=== PATIENT | male | born 2000 | race Caucasian/White ===

== ENCOUNTER 2020-03-31 11:21 | Outpatient (REF) | payer BC, SELFPAY ==
[2020-03-31 14:24] LABS: Hematocrit 42.2 % (42-52); Hemoglobin 13.9 g/dl (14.0-18.0); Mean Corpuscular HGB Conc 32.9 g/dl (31.0-36.0); Mean Corpuscular Volume 91.1 fL (80-98); Mean Platelet Volume 11.3 fL (9.4-12.4); Platelet Count 175 X10*3/uL (160-400); Red Blood Count 4.63 X10*6/uL (4.60-5.80)
[2020-03-31 14:30] LABS: WBC ABN SCTR FOR CBC 1
[2020-03-31 14:51] LABS: White Blood Count 21.8 X10*3/uL (4.8-10.8)
[2020-03-31 14:57] LABS: Anion Gap 12 (12-20); Blood Urea Nitrogen 8 mg/dL (9-16); Carbon Dioxide 30 mmol/L (22-29); Chloride 102 mmol/L (96-108); Estimated Glomerular Filt Rate > 60; Glucose Random 78 mg/dL (60-115); Potassium 4.9 mmol/l (3.3-5.1); Sodium 139 mmol/L (135-145)
[2020-03-31 15:02] LABS: Atypical Lymph Absolute Manual 9.8 x10*3/uL; Atypical Lymphs Percent Manual 45 % (0-6); Band Neutrophils Percent 11 % (3-5); Lymphocytes Absolute Manual 5.7 X10*3/uL (0.6-4.8); Lymphocytes Percent Manual 26 % (20-40); Monocytes Absolute Manual 0.9 X10*3/uL (0.0-1.2); Monocytes Percent Manual 4 % (2-11); Neutrophils Absolute Manual 5.5 X10*3/uL (2.2-7.9); Neutrophils Percent Manual 14 % (45-73); Platelet Estimate NORMAL (NORMAL); RBC Morphology NORMAL
[2020-03-31 15:03] LABS: Platelet Morphology Comment NORMAL
[2020-03-31 15:20] LABS: Monotest Positive (Negative)
[2020-04-01 08:51] LABS: Lyme Abs Screen <0.90 index
== END 2020-03-31 11:22 | disposition home or self-care (01) ==
LOC: HO.LAB 11:21
PROVIDERS: Visit Provider Nurse Practitioner Family
DX: J02.9 Acute pharyngitis, unspecified (principal); R52 Pain, unspecified; Z13.9 Encounter for screening, unspecified
CPT/HCPCS: 36415; 80048; 85007; 85027; 85060; 86308; 86618; 87071; 87147; 87880; U0003

== ENCOUNTER 2022-12-26 10:48 | Outpatient (AMB) | payer BC, SELFPAY ==
--- NOTE | 2022-12-26 10:52 | A.OFFPC_ITS ---
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 Patient states that he wants to get cleared and documents stating he no longer asthma. Patient states that if needed he would like a referral to a pulmanologist. Airplane Cover Maker Required: No Accompanied by: Self / Same As Patient Allergies azithromycin [AZITHROMYCIN] Allergy (Mild, Verified 12/26/22 11:57) RASH Medication List - Last Reconciled 12/26/22 by Roselia Felix CNP cetirizine (Zyrtec) 10 mg PO DAILY PRN montelukast 10 mg PO DAILY Tobacco use date assessed: 12/26/22 Dental Screening Dental Screen Date: 12/26/22 Did you have a dental visit in the last 12 months?: No Did you have a dental problem in the last 6 months where you did not have access to dental care?: No Was dental information given to patient?: Patient has dentist HPI HPI Comments History of Present Illness Details 22-year-old male presents to [facility]. He is a transfer from [facility]. He has not been seen in several years. His last blood work was in 2019. He reports h/o childhood asthma. Not on on prescription medications. No acute symptoms He denies cigarette smoking. He denies recreational drug use. He notes he is sexually active, in a monogamous relationship, and practices safe sex. He notes he is trying to get in the [place]. He requests PFT to rule out acute asthma symptoms. [facility] Medical History (Updated 12/26/22 @ 12:07 by Roselia Felix CNP) No pertinent past medical history Surgical History (Updated 12/26/22 @ 11:04 by Alley Alicia MA) No pertinent past surgical history Family History (Updated 12/26/22 @ 11:10 by Alley Alicia MA) Mother Thyroid disorder Father High blood pressure High cholesterol Diabetes Clotting disorder Paternal Grandmother High blood pressure High cholesterol Diabetes Cardiovascular disease Maternal Grandfather High blood pressure High cholesterol Paternal Grandfather Clotting disorder Social History Housing: House Patient Tobacco Use Status: Never used Tobacco e-Cigarette/Vaping Use: Never Used service: No Current occupational status: employed Current occupation: [employer] Associate Cognitive needs: No Hearing needs: No Vision needs: No Questionnaire PHQ-9 Over the last 2 weeks, how often have you been bothered by any of the following problems? 1. Little interest or pleasure in doing things: not at all 2. Feeling down, depressed, or hopeless: not at all 3. Trouble falling or staying asleep, or sleeping too much: not at all 4. Feeling tired or having little energy: not at all 5. Poor appetite or overeating: not at all 6. Feeling bad about yourself - or that you are a failure or have let yourself or your family down: not at all 7. Trouble concentrating on things, such as reading the newspaper or watching television: not at all 8. Moving or speaking so slowly that other people could have noticed. Or the opposite - being so fidgety or restless that you have been moving around a lot more than usual: not at all 9. Thoughts that you would be better off or of hurting yourself in some way: not at all Total score: 0 Depression Screening Interpretation: Negative Source: Developed by Drs. Yuriy Constantino, Dennise Vaughan, Demarcus Cummings and colleagues, with an educational lauro from [employer]. Thrive Questionnaire Date Thrive assessed: 12/26/22 I am a: Patient What is your living situation today?: I have a steady place to live Within the past 12 months, did the food you bought not last and you didn't have the money to get more?: Never true Within the past 12 months, did you worry whether your food would run out before you got money to buy more?: Never true Do you have trouble paying for medicines?: No Do you have trouble getting transportation to medical appointments?: No Do you have trouble paying your heating and electricity bill?: No Do you have trouble taking care of your child, family member or friend?: No Do you have trouble with day-to-day activities such as bathing, preparing meals, shopping, managing finances, etc.?: No Are you currently unemployed and looking for a job?: No Are you interested in more education?: No Please select the resources that you would like help with: None Currently or been in a relationship where the following occur: no concerns reported AUDIT C Alcohol Use Questionnaire (AUDIT-C) 1. How often do you have a drink containing alcohol?: 2-4 times a month 2. How many drinks containing alcohol do you have on a typical day when you are drinking?: 1 or 2 3. How often do you have six or more drinks on one occasion?: Never Total Score: 2 KWASI-7 AMB Questionnaire KWASI-7 Date KWASI - 7 assessed: 12/26/22 Feeling nervous, anxious, or on edge: 0 = Not at all Not being able to stop or control worryin = Not at all Worrying too much about different things: 0 = Not at all Trouble relaxin = Not at all Being so restless that it is hard to sit still: 0 = Not at all Becoming easily annoyed or irritable: 0 = Not at all Feeling afraid as if something awful might happen: 0 = Not at all Total KWASI-7 score (0-4 normal; 5-9 mild; 10-14 moderate; 15-21 severe): 0 Source: Developed by Drs. Yuriy Constantino, Dennise Vaughan, Demarcus Cummings and colleagues, with an educational lauro from [employer]. ACT Questionnaire In the past 4 weeks, how much of the time did your asthma keep you from getting as much done at work, school or at home?: None of the time During the past 4 weeks, how often have you had shortness of breath?: Not at all During the past 4 weeks, how often did your asthma symptoms wake you up at night or earlier than usual in the morning?: Not at all During the past 4 weeks, how often have you had to use your rescue inhaler or nebulizer medication?: Not at all How would you rate your asthma control during the past 4 weeks?: Completely controlled ACT Interpretation: Negative Score: 25 Review of Systems Const Details: Denies chills, Denies fatigue, Denies fever(s), Denies headache(s) and Denies weakness HEENT Denies change in vision, Denies dizziness, Denies headache(s), Denies hearing loss, Denies nasal congestion, Denies sinus pain, Denies sinus pressure and Denies sore throat Card Denies chest pain, Denies lightheadedness, Denies dyspnea and Denies other (palpitations) Resp Denies cough, Denies dyspnea and Denies wheezing GI Denies abdominal pain, Denies melena, Denies hematochezia, Denies change in bowel habits, Denies dyspepsia and Denies nausea Denies hematuria and Denies dysuria Musc Denies abnormal gait, Denies myalgias, Denies arthralgias, Denies numbness and Denies tingling Skin/Breast Denies rash, Denies unusual bruising and Denies wounds Neuro Denies abnormal gait, Denies dizziness, Denies headache(s), Denies memory loss, Denies numbness, Denies Sensory deficit (Neuro), Denies tingling and Denies weakness Psych Denies anxiety, Denies depression and Denies memory loss Endo Denies cold intolerance, Denies fatigue, Denies heat intolerance, Denies polydipsia and Denies polyuria Castro/Lymph Denies easy bleeding and Denies easy bruising Aller/Immun Denies wheezing Physical exam (Primary Care) Vital Signs: Last Vital Signs Temp 98.1 F 12/26/22 10:54 Pulse 83 12/26/22 10:54 Resp 12 12/26/22 10:54 BP 118/64 12/26/22 10:54 Pulse Ox 99 12/26/22 10:54 Oxygen Delivery Method Room Air 12/26/22 10:54 BMI result Body Mass Index 25.7 Tobacco/Smoking Status: Tobacco use Status Tobacco use date assessed 12/26/22 12/26/22 11:13 Patient Tobacco Use Status Never used Tobacco 12/26/22 11:13 e-Cigarette/Vaping Use Never Used 12/26/22 11:13 PHQ-9: PHQ-9 Score PHQ-9: Total score 0 12/26/22 11:13 Depression Screening Interpretation: Negative Thrive Assessment: Date of Thrive Assessment Date Thrive assessed 12/26/22 12/26/22 11:13 Currently or been in a relationship where the following occur: no concerns reported Const Other: General: no acute distress, well developed, alert and awake Nutritional Appearance: well nourished Orientation/consciousness: patient oriented x3 HENMT Head: Yes normocephalic and Yes atraumatic Ears: hearing grossly normal bilaterally and TM's normal bilaterally General nose exam: Normal external nose present and Normal nares present Mouth: Normal oral and palatal mucosa present and moist mucous membranes Teeth and gingiva: dentition normal Throat: Yes oropharynx normal Eyes Pupils: Equal, round and reactive pupils present and Pupil accommodation reflex normal EOM: EOMs intact bilaterally Neck Neck: Yes normal visual inspection, Yes no lymphadenopathy and Yes trachea midline Thyroid: Thyroid normal Carotids: no bruits Lymphatic: no lymphadenopathy noted Chest Chest palpation & inspection: normal inspection of the chest Resp Effort & Inspection: normal respiratory effort Auscultation: clear to auscultation bilaterally Cardio Rate: regular rate Rhythm: regular rhythm Heart sounds: S1 normal heart sound present, S2 normal heart sound present, no gallops, no murmurs and no rubs Bruits: no abdominal aortic bruits and no carotid bruits GI Palpation (GI): No Abdominal aortic bruit present, Soft to palpation, nontender, No hepatosplenomegaly present and No Rebound tenderness present Auscultation: normal bowel sounds General: Yes no CVA tenderness Back/Spine/Pelvis Back: no CVA tenderness Cervical Spine: cervical ROM normal and No Cervical spine tenderness Thoracic/Lumbar Spine: thoraco-lumbar ROM normal, No pain with thoraco-lumbar ROM, No thoracic spinal tenderness and No lumbar spinal tenderness Skin General: warm and dry. Normal skin color. Normal skin turgor Lesions: no lesions Rashes: no rashes Trauma: no lacerations or abrasions Wounds: no wounds Nails: normal Neuro General: patient oriented x3, gait normal and CN's II-XI intact bilaterally Cranial nerves: Yes Equal, round and reactive pupils present Cognition (Neuro): normal cognition Gait exam (Neuro): Normal gait present Motor exam (neuro): 5/5 motor strength present throughout Sensory Exam: No Sensory deficit (Neuro) Deep tendon reflexes (DTR's): Right patellar reflex intensity grade: 2+ and Left patellar reflex intensity grade: 2+ Extrem General: Yes normal to inspection, No edema and No calf tenderness Psych Appearance: grossly normal Affect: normal affect Attitude: cooperative Thought process: Normal thought process present Assessment and Plan Assessment & Plan (1) Normal physical examination, routine: Code(s): Z00.00 - Encounter for general adult medical examination without abnormal findings Plan: No significant physical restrictions or limitations noted Advised to get fasting blood work done and schedule a telehealth visit for labs review PFT ordered per patient request to rule out acute asthma Follow-up with concerns or symptoms Verbalized understanding and agreed with treatment plan. (2) Laboratory tests ordered as part of a complete physical exam (CPE): Code(s): Z00.00 - Encounter for general adult medical examination without abnormal findings Plan: Fasting labs ordered as part of a complete physical exam. Advised to fast for at least 10 hours before getting labs drawn. May drink water Verbalized understanding and agreed with treatment plan. Orders: Orders Comprehensive [place]. Panel Fast Today Z00.00 - Encounter for general adult medical examination without abnormal findings Lipid Panel Today Z00.00 - Encounter for general adult medical examination without abnormal findings TSH reflex Free T4 Today Z00.00 - Encounter for general adult medical exa mination without abnormal findings Complete Blood Count Auto Diff Today Z00.00 - Encounter for general adult medical examination without abnormal findings UA CC w/rflx Micro + Cult Today Z00.00 - Encounter for general adult medical examination without abnormal findings PFT pulmonary function test Today Z00.00 - Encounter for general adult medical examination without abnormal findings Coding Level of Care Code Est Pt Prev Care 18-39y(27243) Diagnoses Normal physical examination, routine Z00.00 Laboratory tests ordered as part of a complete physical exam (CPE) Z00.00
[2022-12-26 10:54] VITALS: BP 118/64; PULSE 83; RESP 12; TEMP 36.7; O2SAT 99; BMI 25.7
== END 2022-12-26 12:27 | disposition home or self-care (01) ==
PROVIDERS: PCP Nurse Practitioner Family; Visit Provider Nurse Practitioner Family
DX: Z00.00 Encounter for general adult medical examination without abnormal findings (principal)
CPT/HCPCS: 99395

== ENCOUNTER 2022-12-26 12:33 | Outpatient (REF) | payer BC, SELFPAY ==
[2022-12-26 14:20] LABS: MANUAL DIFF FLAG NO
[2022-12-26 14:33] LABS: Basophils Percent Auto 0.3 % (0-2); Eosinophils Absolute Auto 0.1 X10*3/uL (0.0-0.4); Eosinophils Percent Auto 1.6 % (0-4); Hemoglobin 15.3 g/dl (14.0-18.0); Imm Gran Abs Auto 0.04 X10*3/uL (0.00-0.03); Imm Gran Pct Auto 0.6 % (0.0-0.4); Lymphocytes Absolute Auto 1.5 X10*3/uL (1.2-4.9); Lymphocytes Percent Auto 24.5 % (20-40); Mean Corpuscular Hemoglobin 31.2 pg (27.0-33.0); Mean Corpuscular Volume 91.8 fL (80.0-98.0); Mean Platelet Volume 10.1 fL (9.4-12.4); Monocytes Absolute Auto 0.6 X10*3/uL (0.1-1.2); Monocytes Percent Auto 10.3 % (2-11); Neutrophils Absolute Auto 3.9 x10*3/uL (2.0-8.3); Neutrophils Percent Auto 62.7 % (45-73); Platelet Count 240 X10*3/uL (160-400); Red Cell Distribution Width 12.7 % (11.0-16.0); White Blood Count 6.2 X10*3/uL (4.8-10.8)
[2022-12-26 14:48] LABS: Appearance Urine Clear; Color Urine Yellow; Glucose Urine UA Negative (Negative); Leukocyte Esterase Urine Negative (Negative); Nitrite Urine Negative (Negative); PH 6.5 (5.0-9.0); Urine Blood Negative (Negative); Urine Ketones Negative (Negative); Urine Protein Negative (Neg-Trace)
[2022-12-26 15:32] LABS: Alanine Aminotransferase 23 U/L (0-40); Albumin Level 4.5 g/dL (3.5-5.0); Alkaline Phosphatase 52 U/L (39-117); Anion Gap 11 (12-20); Aspartate Amino Transferase 27 U/L (5-37); Blood Urea Nitrogen 16 mg/dL (9-16); Calcium 9.4 mg/dL (8.4-10.2); Carbon Dioxide 28 mmol/L (22-29); Chloride 105 mmol/L (96-108); Cholesterol 175 mg/dL; Estimated Glomerular Filt Rate > 60; Glucose Fasting 84 mg/dL (60-99); HDL Cholesterol 68 mg/dL; LDL Cholesterol Calculated 99 mg/dl; Potassium 4.1 mmol/L (3.3-5.1); Sodium 140 mmol/L (135-145); Total Protein 7.1 g/dL (6.5-8.0); Triglycerides 41 mg/dL
[2022-12-26 15:50] LABS: TSH reflex Free T4 1.02 uIU/mL (0.32-4.0)
== END 2022-12-26 12:34 | disposition home or self-care (01) ==
LOC: HO.WFDLDS 12:33
PROVIDERS: Visit Provider Nurse Practitioner Family
DX: Z00.00 Encounter for general adult medical examination without abnormal findings (principal)
CPT/HCPCS: 36415; 80053; 80061; 81003; 84443; 85025

== ENCOUNTER 2023-01-21 14:12 | Outpatient (REF) | payer BC, SELFPAY ==
--- NOTE | 2023-01-21 15:07 | PFT_ITS ---
INDICATION: Asthma. SPIROMETRY: FEV to FVC of 87% with an FEV1 of 6.23 L, which is 117% predicted and an FVC of 7.14 L, which is 110% predicted. No significant response to bronchodilator is noted. Maximum voluntary ventilation 95% predicted. LUNG VOLUMES: Total lung capacity 97% predicted. DIFFUSION CAPACITY: DLCO of 109% predicted. COMPARISONS: None. INTERPRETATION: No obstructive nor restrictive ventilatory defects identified. No significant response to bronchodilators noted. Normal maximum voluntary ventilation. Lung volumes are within normal limits. Diffusion capacity also within normal limits. No evidence of any obstructive airway disease based on the studies. If asthma is in the differential, methacholine challenge maybe helpful in assessing for hyperactive airways, otherwise clinical correlation warranted. MD MONET Fermin/MODMarzena / [id number]
== END 2023-01-21 14:13 | disposition home or self-care (01) ==
LOC: HO.RESP 14:12
PROVIDERS: PCP Nurse Practitioner Family; Visit Provider Nurse Practitioner Family
DX: J45.909 Unspecified asthma, uncomplicated (principal)
CPT/HCPCS: 94010; 94727; 94729

== ENCOUNTER → 2023-01-21 15:07 | Outpatient (BNV) | payer BC, SELFPAY | PROVIDERS: PCP Nurse Practitioner Family; Visit Provider Hospitalist | DX: J45.909 Unspecified asthma, uncomplicated (principal) | CPT/HCPCS: 94060; 94727; 94729 ==

== ENCOUNTER 2023-01-30 15:00 | Outpatient (AMB) | payer BC, SELFPAY ==
[2023-01-30 15:06] VITALS: BP 126/68; PULSE 77; O2SAT 99; BMI 25.6
--- NOTE | 2023-01-30 15:06 | MHC.OFFVIS ---
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 He was referred by PCP for pulmonary evaluation. He reports having symptoms of asthma with colds as a child but denies any occurrences as an adult. He states his father with similar presentation, otherwise no pertinent family history. He currently denies any respiratory symptoms. He denies any occupational exposures. He reports intermittent seasonal allergies which are controlled with antihistamines and singulair. He recently had a physical examination and requested a PFT for enrollment into the [facility]. PFT was unremarkable. [facility] Medical History (Updated 01/30/23 @ 15:37 by Claudia Acosta NP) No pertinent past medical history Surgical History (Updated 12/26/22 @ 11:04 by Alley Alicia MA) No pertinent past surgical history Family History (Updated 12/26/22 @ 11:10 by Alley Alicia MA) Mother Thyroid disorder Father High blood pressure High cholesterol Diabetes Clotting disorder Paternal Grandmother High blood pressure High cholesterol Diabetes Cardiovascular disease Maternal Grandfather High blood pressure High cholesterol Paternal Grandfather Clotting disorder Social History (Updated 01/30/23 @ 15:10 by Jodi Ghosh LPN) Housing: House Patient Tobacco Use Status: Never used Tobacco Smoked in Last 30 Days: No e-Cigarette/Vaping Use: Never Used service: No Current occupational status: employed Current occupation: [employer] Cognitive needs: No Hearing needs: No Vision needs: No Review of Systems Const Denies chills, Denies excessive sweating, Denies fever(s), Denies headache(s) and Denies night sweats Eyes Denies dry eyes, Denies irritation and Denies itchy eyes ENT Reports Normal hearing present, Denies headache(s), Denies nasal congestion, Denies nasal discharge, Denies post nasal drip and Denies sore throat Card Denies chest pain, Denies chest pain at rest, Denies chest pain with activity, Denies claudication, Denies leg edema, Denies dyspnea, Denies dyspnea on exertion, Denies orthopnea and Denies paroxysmal nocturnal dyspnea Resp Denies chest congestion, Denies cough, Denies excessive phlegm production, Denies pain on inspiration, Denies pain with cough, Denies dyspnea, Denies dyspnea on exertion, Denies stridor and Denies wheezing Musc Denies myalgias Neuro Reports Normal hearing present and Denies headache(s) Endo Denies excessive sweating Castro/Lymph Denies lymphadenopathy Aller/Immun Denies itchy eyes, Denies seasonal rhinorrhea and Denies wheezing Physical Exam Vital Signs: Last Vital Signs BP 126/68 01/30/23 15:06 BMI result Body Mass Index 25.6 Const General: cooperative, healthy appearing, comfortable, no acute distress, well developed and alert Orientation/consciousness: patient oriented x3 Limitations: no limitations HEENT Head: Yes normal to inspection, Yes normocephalic and Yes atraumatic Ears: hearing grossly normal bilaterally and external ears normal Eyes General: appearance normal, both eyes and all related structures Eyelids: Yes eyelids normal Sclerae: sclerae normal EOM: EOMs intact bilaterally Neck Neck: Yes normal visual inspection and Yes no lymphadenopathy Lymphatic: no lymphadenopathy noted Chest Chest palpation & inspection: normal inspection of the chest Resp Effort & Inspection: normal respiratory effort, able to speak in complete sentences, no audible wheezes, no cough, no stridor, not tachypneic, no tripod positioning and no use of accessory muscles Auscultation: clear to auscultation bilaterally Cardio Jugular venous distension: no JVD Rate: regular rate Rhythm: regular rhythm Skin Other: warm, dry General skin exam: no rashes or lesions noted Neuro General: patient oriented x3 Cranial nerves: Yes Normal hearing present Cognition (Neuro): normal cognition Gait exam (Neuro): Normal gait present Extrem General: Yes normal to inspection, Yes capillary refill normal, Yes no clubbing, cyanosis or edema and Yes no pedal edema Psych Appearance: grossly normal and well kempt Speech and movement: Normal speech and movement present and Clear speech present Affect: normal affect Attitude: cooperative Thought process: Normal thought process present Thought content: Normal thought content present Insight: Good insight present (Psych) Judgement: Good judgement present (Psych) Results Reviewed Results Reviewed: Assessment & Plan Assessment & Plan (1) History of asthma: Code(s): Z87.09 - Personal history of other diseases of the respiratory system Plan Seymour presents to further discuss pulmonary function test, full report above. PFT did not reveal any obstructive nor restrictive ventilatory defects and no significant response to bronchodilators noted. Lung volumes and DLCO within normal limits. Based on this PFT. there is no evidence of any obstructive airway disease. We briefly discussed scheduling a methacholine challenge to better assess for hyperactive airways but since patient without symptoms for years, will hold off. He is aware if he would like to proceed to call the office. All questions were answered and patient is in agreement of plan. Will follow up PRN. Coding Level of Care Code New Pt Level 3 (91876) Diagnoses History of asthma Z87.09
== END 2023-01-30 15:22 | disposition home or self-care (01) ==
LOC: HO.HPSW 15:00
PROVIDERS: PCP Nurse Practitioner Family; Referring Provider Nurse Practitioner Family; Visit Provider Nurse Practitioner Family
DX: Z87.09 Personal history of other diseases of the respiratory system (principal)
CPT/HCPCS: 99203

== ENCOUNTER 2023-07-02 14:44 | Outpatient (AMB) | payer BC, SELFPAY ==
[2023-07-02 14:55] VITALS: BP 120/62; PULSE 90; RESP 13; O2SAT 98; BMI 24.6
--- NOTE | 2023-07-02 14:55 | MHC.OFFWIV ---
Intake Vital Signs 07/02/23 14:55 Height 6 ft 3 in Weight 197 lb BMI 24.6 BP 120/62 Blood Pressure Location Lt brachial Position Sitting Respiration 13 Pulse 90 Pulse Source Pulse Oximeter Pulse Oximetry (%) 98 Oxygen Delivery Method Room Air Intake Visit Reasons: ? [place] eye Intake Note: Patient reports red, watering crusty R eye x2 days. Patient reports he has swelling and soreness surrounding his eye. 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 He notes that his symptoms started yesterday and has been same. No visual disturbances. No headaches. No injury or trauma. He has been taking Ibuprofen with improvement of the swelling. [facility] Medical History (Updated 07/02/23 @ 15:27 by Roselia Felix CNP) No pertinent past medical history Surgical History (Updated 12/26/22 @ 11:04 by Alley Alicia MA) No pertinent past surgical history Family History (Updated 12/26/22 @ 11:10 by Alley Alicia MA) Mother Thyroid disorder Father High blood pressure High cholesterol Diabetes Clotting disorder Paternal Grandmother High blood pressure High cholesterol Diabetes Cardiovascular disease Maternal Grandfather High blood pressure High cholesterol Paternal Grandfather Clotting disorder Social History (Updated 01/30/23 @ 15:10 by Jodi Ghosh LPN) Housing: House Patient Tobacco Use Status: Never used Tobacco e-Cigarette/Vaping Use: Never Used service: No Current occupational status: employed 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 occupation: [employer] Associate Cognitive needs: No Hearing needs: No Vision needs: No Review of Systems Const Details: Const Denies chills, Denies fatigue, Denies fever(s), Denies headache(s) and Denies weakness ENT Reports as per HPI Resp Denies cough, Denies dyspnea, Denies wheezing and Denies other (shortness of breath) Cardio Denies chest pain, Denies lightheadedness, Denies dyspnea and Denies other (palpitations) Neuro Denies dizziness, Denies headache(s), Denies numbness, Denies tingling and Denies weakness Psych Denies anxiety, Denies depression, Denies memory?loss Endo Denies fatigue Aller/Immun Denies wheezing All systems reviewed & are unremarkable except as noted in HPI and below Physical Exam Vital Signs: Last Vital Signs Pulse 90 07/02/23 14:55 Resp 13 07/02/23 14:55 BP 120/62 07/02/23 14:55 Pulse Ox 98 07/02/23 14:55 Oxygen Delivery Method Room Air 07/02/23 14:55 BMI result Body Mass Index 24.6 Const Other: Const General: well developed; No acute distress Nutritional Appearance: well nourished Orientation/consciousness: patient oriented x3 HEENT Head is normocephalic Bilateral ear canal and TM are normal Nasal turbinates and oropharynx are pink and moist Sinuses are nontender with palpation No auricular or cervical lymphadenopathy Eyes General: Right conjunctiva with significant erythema, mild edema below the right lower eyelid, no overt injury or trauma. Normal left eye exam Pupils: Equal, round and reactive pupils present EOM: EOMs intact bilaterally Resp Effort & Inspection: normal respiratory effort Auscultation: clear to auscultation bilaterally Cardio Rate: regular rate Rhythm: regular rhythm Heart sounds: S1 normal heart sound present, S2 normal heart sound present, no gallops, no murmurs and no rubs Bruits: no abdominal aortic bruits and no carotid bruits Neuro General: patient oriented x3 and gait normal, no focal neuro deficit Cranial nerves: Yes Equal, round and reactive pupils present Psych Affect: normal affect Assessment & Plan Assessment & Plan (1) Bacterial conjunctivitis of right eye: Code(s): H10.9 - Unspecified conjunctivitis Plan: Reports swelling, soreness, yellow crust, redness, and clear drainage to the right eye since yesterday Right conjunctiva with significant erythema, mild edema below the right lower eyelid, no overt injury or trauma. Normal left eye exam Erythromycin ointment ordered. Use as prescribed Warm compresses encouraged Good hand hygiene instructed and encouraged to limit spread May take Tylenol/ibuprofen for pain or discomfort Follow-up with worsening or new signs and symptoms Verbalized understanding and agreed with treatment plan Coding Level of Care Code Est Pt Level 3 (86256) Diagnoses Bacterial conjunctivitis of right eye H10.9
== END 2023-07-02 15:22 | disposition home or self-care (01) ==
PROVIDERS: PCP Nurse Practitioner Family
DX: H10.9 Unspecified conjunctivitis (principal)
CPT/HCPCS: 99213

== ENCOUNTER 2023-11-11 09:54 | Outpatient (REF) | payer BC, SELFPAY ==
[2023-11-13 19:23] LABS: TS Negative Control Passed; TS Panel A 0; TS Panel B 0; TS Positive Control Passed; TSpotTB Negative (Negative)
== END 2023-11-11 09:55 | disposition home or self-care (01) ==
LOC: HO.LAB 09:54
PROVIDERS: Nurse Practitioner Family
DX: Z11.1 Encounter for screening for respiratory tuberculosis (principal)
CPT/HCPCS: 36415; 86481

== ENCOUNTER 2023-12-30 13:05 | Outpatient (AMB) | payer BC, SELFPAY ==
--- NOTE | 2023-12-30 13:17 | MHC.PC.OV ---
Vital Signs 12/30/23 13:25 Height 6 ft 3 in Weight 200 lb 4 oz BMI 25.0 BP 110/60 Blood Pressure Location Rt brachial Position Sitting Respiration 16 Pulse 77 Pulse Source Pulse Oximeter Temp 98 F Temp Source Tympanic Pulse Oximetry (%) 98 Oxygen Delivery Method Room Air Intake Visit Reasons: CPE Intake Note: CPE Allergies azithromycin [AZITHROMYCIN] Allergy (Mild, Verified 12/30/23 13:35) RASH Medication List - Last Reconciled 12/30/23 by Roselia Felix CNP cetirizine (Zyrtec) 10 mg PO DAILY PRN erythromycin 0.5 inches ophthalmic (eye) TID 7 days montelukast 10 mg PO DAILY Tobacco use date assessed: 12/30/23 Dental Screening Dental Screen Date: 12/30/23 Did you have a dental visit in the last 12 months?: No Did you have a dental problem in the last 6 months where you did not have access to dental care?: No Was dental information given to patient?: Yes HPI HPI Comments History of Present Illness Details 23-year-old male presents for an extended physical exam He has history of childhood asthma and seasonal allergies He is on cetirizine 10 mg daily and montelukast 10 mg daily He admits to eating healthy and sleeping well. He exercises routinely He offers no complaints and denies acute symptoms at this time Nonsmoker. Drinks 1-4 beers twice weekly. No recreational drug use He wears contact lenses to correct myopia. His last eye exam was over a year ago His last dental follow-up was over a year ago His last tetanus vaccine was over 10 years ago. He requests a tetanus booster He is sexually active, in a monogamous relationship, and has no concerns for STDs [facility] Medical History (Updated 11/04/23 @ 08:14 by Roselia Felix CNP) No pertinent past medical history Surgical History (Updated 12/26/22 @ 11:04 by HERB Parra) No pertinent past surgical history Family History (Updated 12/26/22 @ 11:10 by HERB Parra) Mother Thyroid disorder Father High blood pressure High cholesterol Diabetes Clotting disorder Paternal Grandmother High blood pressure High cholesterol Diabetes Cardiovascular disease Maternal Grandfather High blood pressure High cholesterol Paternal Grandfather Clotting disorder Social History (Updated 12/30/23 @ 13:25 by Geoff Ramos) Housing: House Patient Tobacco Use Status: Never used Tobacco e-Cigarette/Vaping Use: Never Used service: No Current occupational status: employed Current occupation: [employer] Cognitive needs: No Hearing needs: No Vision needs: No Questionnaire PHQ-9 Over the last 2 weeks, how often have you been bothered by any of the following problems? 1. Little interest or pleasure in doing things: not at all 2. Feeling down, depressed, or hopeless: not at all 3. Trouble falling or staying asleep, or sleeping too much: not at all 4. Feeling tired or having little energy: not at all 5. Poor appetite or overeating: not at all 6. Feeling bad about yourself - or that you are a failure or have let yourself or your family down: not at all 7. Trouble concentrating on things, such as reading the newspaper or watching television: not at all 8. Moving or speaking so slowly that other people could have noticed. Or the opposite - being so fidgety or restless that you have been moving around a lot more than usual: not at all 9. Thoughts that you would be better off or of hurting yourself in some way: not at all Total score: 0 Depression Screening Interpretation: Negative Depression Screening Done: Yes [id number] - PHQ-9 Billing: Yes Source: Developed by Drs. Yuriy Constantino, Dennise Vaughan, Demarcus Cummings and colleagues, with an educational lauro from [employer]. Thrive Questionnaire Date Thrive assessed: 12/30/23 I am a: Patient What is your living situation today?: I have a steady place to live Within the past 12 months, did the food you bought not last and you didn't have the money to get more?: Never true Within the past 12 months, did you worry whether your food would run out before you got money to buy more?: Never true Do you have trouble paying for medicines?: No Do you have trouble getting transportation to medical appointments?: No Do you have trouble paying your heating and electricity bill?: No Do you have trouble taking care of your child, family member or friend?: No Do you have trouble with day-to-day activities such as bathing, preparing meals, shopping, managing finances, etc.?: No Are you currently unemployed and looking for a job?: No Are you interested in more education?: No Please select the resources that you would like help with: None Currently or been in a relationship where the following occur: No concerns reported THRIVE Score: 0 AUDIT C Alcohol Use Questionnaire (AUDIT-C) 1. How often do you have a drink containing alcohol?: 2-3 times a week 2. How many drinks containing alcohol do you have on a typical day when you are drinking?: 3 or 4 3. How often do you have six or more drinks on one occasion?: Less than monthly Total Score: 5 Score Reviewed/Action Taken: Yes KWASI-7 AMB Questionnaire KWASI-7 Date KWASI - 7 assessed: 12/30/23 Feeling nervous, anxious, or on edge: 0 = Not at all Not being able to stop or control worryin = Not at all Worrying too much about different things: 0 = Not at all Trouble relaxin = Not at all Being so restless that it is hard to sit still: 0 = Not at all Becoming easily annoyed or irritable: 0 = Not at all Feeling afraid as if something awful might happen: 0 = Not at all Total KWASI-7 score (0-4 normal; 5-9 mild; 10-14 moderate; 15-21 severe): 0 Source: Developed by Drs. Yuriy Constantino, Dennise Vaughan, Demarcus Cummings and colleagues, with an educational lauro from [employer]. KWASI-7 Assessment Billing KWASI-7 Assessment Tool: KWASI-7 Assessment 22670 Review of Systems Const Details: Denies chills, Denies fatigue, Denies fever(s), Denies headache(s) and Denies weakness HEENT Denies change in vision, Denies dizziness, Denies headache(s), Denies hearing loss, Denies nasal congestion, Denies sinus pain, Denies sinus pressure and Denies sore throat Card Denies chest pain, Denies lightheadedness, Denies dyspnea and Denies other (palpitations) Resp Denies cough, Denies dyspnea and Denies wheezing GI Denies abdominal pain, Denies melena, Denies hematochezia, Denies change in bowel habits, Denies dyspepsia and Denies nausea Denies hematuria and Denies dysuria Musc Denies abnormal gait, Denies myalgias, Denies arthralgias, Denies numbness and Denies tingling Skin/Breast Denies rash, Denies unusual bruising and Denies wounds Neuro Denies abnormal gait, Denies dizziness, Denies headache(s), Denies memory loss, Denies numbness, Denies Sensory deficit (Neuro), Denies tingling and Denies weakness Psych Denies anxiety, Denies depression and Denies memory loss Endo Denies cold intolerance, Denies fatigue, Denies heat intolerance, Denies polydipsia and Denies polyuria Castro/Lymph Denies easy bleeding and Denies easy bruising Aller/Immun Denies wheezing Physical exam (Primary Care) Vital Signs: Last Vital Signs Temp 98 F 12/30/23 13:25 Pulse 77 12/30/23 13:25 Resp 16 12/30/23 13:25 BP 110/60 12/30/23 13:25 Pulse Ox 98 12/30/23 13:25 Oxygen Delivery Method Room Air 12/30/23 13:25 BMI result Body Mass Index 25.0 Tobacco/Smoking Status: Tobacco use Status Tobacco use date assessed 12/30/23 12/30/23 13:28 Patient Tobacco Use Status Never used Tobacco 12/30/23 13:25 e-Cigarette/Vaping Use Never Used 12/30/23 13:25 PHQ-9: PHQ-9 Score PHQ-9: Total score 0 12/30/23 13:37 Depression Screening Interpretation: Negative Thrive Assessment: Date of Thrive Assessment Date Thrive assessed 12/30/23 12/30/23 13:23 Currently or been in a relationship where the following occur: No concerns reported Const Other: General: no acute distress, well developed, alert and awake Nutritional Appearance: well nourished Orientation/consciousness: patient oriented x3 HENMT Head: Yes normocephalic and Yes atraumatic Ears: hearing grossly normal bilaterally and TM's normal bilaterally General nose exam: Normal external nose present and Normal nares present Mouth: Normal oral and palatal mucosa present and moist mucous membranes Teeth and gingiva: dentition normal Throat: Yes oropharynx normal Eyes Pupils: Equal, round and reactive pupils present and Pupil accommodation reflex normal EOM: EOMs intact bilaterally Neck Neck: Yes normal visual inspection, Yes no lymphadenopathy and Yes trachea midline Thyroid: Thyroid normal Carotids: no bruits Lymphatic: no lymphadenopathy noted Chest Chest palpation & inspection: normal inspection of the chest Resp Effort & Inspection: normal respiratory effort Auscultation: clear to auscultation bilaterally Cardio Rate: regular rate Rhythm: regular rhythm Heart sounds: S1 normal heart sound present, S2 normal heart sound present, no gallops, no murmurs and no rubs Bruits: no abdominal aortic bruits and no carotid bruits GI Palpation (GI): No Abdominal aortic bruit present, Soft to palpation, nontender, No hepatosplenomegaly present and No Rebound tenderness present Auscultation: normal bowel sounds General: Yes no CVA tenderness Back/Spine/Pelvis Back: no CVA tenderness Cervical Spine: cervical ROM normal and No Cervical spine tenderness Thoracic/Lumbar Spine: thoraco-lumbar ROM normal, No pain with thoraco-lumbar ROM, No thoracic spinal tenderness and No lumbar spinal tenderness Skin General: warm and dry. Normal skin color. Normal skin turgor Lesions: no lesions Rashes: no rashes Trauma: no lacerations or abrasions Wounds: no wounds Nails: normal Neuro General: patient oriented x3, gait normal and CN's II-XI intact bilaterally Cranial nerves: Yes Equal, round and reactive pupils present Cognition (Neuro): normal cognition Gait exam (Neuro): Normal gait present Motor exam (neuro): 5/5 motor strength present throughout Sensory Exam: No Sensory deficit (Neuro) Deep tendon reflexes (DTR's): Right patellar reflex intensity grade: 2+ and Left patellar reflex intensity grade: 2+ Extrem General: Yes normal to inspection, No edema and No calf tenderness Psych Appearance: grossly normal Affect: normal affect Attitude: cooperative Thought process: Normal thought process present Immunizations Boostrix Tdap 2.5 Lf unit-8 mcg-5 Lf/0.5 mL intramuscular syringe Performing Provider: Roselia Felix CNP [place] [facility] Administered by: Autumn Mcdonald RN on 12/30/23 14:01 Dose Route Admin Location Dispensed Lot Number Expiration Date [employer] 0.5 mL IM Left Deltoid 0.5 mL [id number] 02/18/26 [id number] [employer] VIS Given Date VIS Provided VIS Publication Date 12/30/23 Single Vaccine 20 Eligibility Eligibility Date Funding Source Not [place] Eligible 12/30/23 Private Assessment and Plan Assessment & Plan (1) Normal physical examination, routine: Code(s): Z00.00 - Encounter for general adult medical examination without abnormal findings Plan: No significant physical restrictions or limitations noted Tetanus injection administered by the nurse Continue current treatment regimen Healthy diet and routine exercise encouraged Advised to schedule an 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 Advised to fast for at least 10 hours before getting labs drawn. May drink water Verbalized understanding and agreed with treatment plan. Orders: Orders Complete Blood Count Auto Diff Today Z00.00 - Encounter for general adult medical examination without abnormal findings Lipid Panel Today Z00.00 - Encounter for general adult medical examination without abnormal findings UA CC w/rflx Micro + Cult Today Z00.00 - Encounter for general adult medical examination without abnormal findings Comprehensive [place]. Panel Fast Today Z00.00 - Encounter for general adult medical examination without abnormal findings TSH reflex Free T4 Today Z00.00 - Encounter for general adult medical examination without abnormal findings Medications: Discontinued erythromycin Discontinued Reason: Patient no longer taking 0.5 inches ophthalmic (eye) TID 7 days 3.5 grams 0RF Coding Level of Care Code Est Pt Prev Care 18-39y(40401) Diagnoses Normal physical examination, routine Z00.00 Laboratory tests ordered as part of a complete physical exam (CPE) Z00.00 Additional Codes KWASI-7 Assessment Billing - KWASI-7 Assessment Tool: KWASI-7 Assessment [id number] ([id number])
[2023-12-30 13:25] VITALS: BP 110/60; PULSE 77; RESP 16; TEMP 36.6; O2SAT 98; BMI 25.0
== END 2023-12-30 14:01 | disposition home or self-care (01) ==
PROVIDERS: PCP Nurse Practitioner Family; Visit Provider Nurse Practitioner Family
DX: Z00.00 Encounter for general adult medical examination without abnormal findings (principal); Z23 Encounter for immunization
CPT/HCPCS: 90471; 90715; 99395